=== PATIENT | female | born 1960 | race Hispanic/Latino ===

== ENCOUNTER 2019-07-06 11:04 | Emergency (ER) | payer MEDICARE, MEDICAID ==
--- NOTE | 2019-07-06 17:29 | RAD ---
CHEST 2 VIEWS: Date: 07/06/19 The heart is normal in size and the lungs are clear. No infiltrate or effusion seen. There is no vasc ular congestion or edema. The mediastinum is unremarkable. IMPRESSION: No acute thoracic finding. POS: HOME
== END 2019-07-06 12:04 | disposition home or self-care (01) ==
LOC: BURERS 11:04
DX: J06.9 Acute upper respiratory infection, unspecified (principal); E78.5 Hyperlipidemia, unspecified; F41.9 Anxiety disorder, unspecified; Z79.899 Other long term (current) drug therapy
CPT/HCPCS: 71046

== ENCOUNTER 2020-02-13 19:08 | Emergency (ER) | payer MEDICARE, MEDICAID ==
[2020-02-13 20:37] LABS: Bilirubin Negative (Negative); Blood, Urine Negative (Negative); Clarity Clear (Clear); Glucose, Urine (Dipstick) Negative (Negative); Leukocyte Negative (Negative); Nitrite Negative (Negative); Protein, Urine (Dipstick) Negative (Neg-Trace); Urobilinogen 0.2 mg/dL (Less than 2)
[2020-02-13 20:38] LABS: #Basophils 0.1 thou/uL (0.0-0.2); #Eosinphils 0.1 thou/uL (0.0-0.7); #Monocytes 0.8 thou/uL (0.11-0.59); #Neutrophils 4.1 thou/uL (1.40-6.50); %Basophils 0.7 % (0.0-1.0); %Eosinophils 0.8 % (0.0-10.0); %Lymphocytes 37.2 % (21.0-51.0); %Monocytes 10.3 % (0.0-10.0); %Neutrophils 51.1 % (42.0-75.0); Hemoglobin 14.1 g/dL (12.0-16.0); Mean Corpuscular HGB CONC 33.6 g/dL (32.0-36.0); Mean Corpuscular Hemoglobin 32.5 pg (27.0-31.0); Mean Corpuscular Volume 96.9 fL (78.0-98.0); Mean Platelet Volume 9.3 fL (7.4-10.4); Platelet Count 176 thou/uL (130-400); Prothrombin Time 13.3 SEC (12.0-14.7); RBC Distribution Width 11.3 % (11.5-14.5); Red Blood Cell (RBC) Count 4.34 mill/uL (4.20-5.40)
[2020-02-13 20:47] LABS: ALT (SGPT) 15 U/L (8-55); AST (SGOT) 15 U/L (5-34); Albumin 4.5 g/dL (3.5-5.0); Alkaline Phosphatase 53 U/L (40-110); Anion Gap 14 mmol/L (10-20); BUN (Urea Nitrogen) 11 mg/dL (9.8-20.1); Bilirubin, Total 0.4 mg/dL (0.2-1.2); Calc. Creatinine Clearance 0 mL/min (70-130); Calcium 9.5 mg/dL (7.8-10.44); Carbon Dioxide 29 mmol/L (22-29); Chloride 102 mmol/L (98-107); Estimated GFR-MDRD 79; Globulin 2.5 g/dL (2.4-3.5); Glucose 81 mg/dL (70-105); Potassium 3.2 mmol/L (3.5-5.1); Sodium 142 mmol/L (136-145)
--- NOTE | 2020-02-13 21:16 | CT ---
CT OF THE BRAIN WITHOUT CONTRAST: 02/13/20 The ventricles are normal in size with no shift. No intracranial bleeding or extra-axial hematoma was seen. There is no sign of mass, stroke or edema. The skull appears intact. The visible paranasal sin uses are clear. IMPRESSION: No acute intracranial findings. Preliminary report called to [facility] in ER at 1935 on 02/13/20. POS: HOME
--- NOTE | 2020-02-13 21:17 | RAD ---
PELVIS ONE VIEW: 02/13/20 The bony pelvis appears intact. No fracture was appreciated. The hips appear normal and symmetrical. There is no widening of the symphysis and the pubic rings appear intact. Some mild scoliosis is seen in the lower lumbar spine. IMPRESSION: No acute bony findings. POS: HOME
--- NOTE | 2020-02-13 21:18 | RAD ---
PORTABLE CHEST: 02/13/20 An AP portable film at 2056 is compared with an 07/06/19 study. The heart is normal in size. There is no widening or shift of the mediastinum. The lungs are fully i nflated and clear, perhaps even a little hyperinflated. There are no effusions. No fractures were johan reciated. IMPRESSION: No acute thoracic findings. POS: HOME
--- NOTE | 2020-02-13 21:19 | RAD ---
LEFT SHOULDER THREE VIEWS: 02/13/20 No fracture, dislocation, or AC joint widening was seen. The visible adjacent ribs appeared intact. IMPRESSION: No acute findings. POS: HOME
--- NOTE | 2020-02-13 21:20 | RAD ---
LEFT KNEE FOUR VIEWS: 02/13/20 No fracture or joint effusion was seen. There is mild medial joint space narrowing and osteophytes ty pical of osteoarthritis. The articular surfaces are normal in appearance. IMPRESSION: Mild osteoarthritis, primarily medial compartment. No acute bony findings. POS: HOME
== END 2020-02-13 22:05 | disposition home or self-care (01) ==
LOC: BURERS 19:08
DX: S06.0X1A Concussion with loss of consciousness of 30 minutes or less, initial encounter (principal); S70.02XA Contusion of left hip, initial encounter; S40.012A Contusion of left shoulder, initial encounter; E78.5 Hyperlipidemia, unspecified; M79.7 Fibromyalgia; I11.0 Hypertensive heart disease with heart failure; I50.9 Heart failure, unspecified; J44.9 Chronic obstructive pulmonary disease, unspecified; F41.9 Anxiety disorder, unspecified; F43.10 Post-traumatic stress disorder, unspecified; Z79.899 Other long term (current) drug therapy; Z79.51 Long term (current) use of inhaled steroids; W11.XXXA Fall on and from ladder, initial encounter
CPT/HCPCS: 70450; 71045; 72170; 80053; 81003; 85025; 85610